=== PATIENT | female | born 1990 | race Caucasian/White ===

== ENCOUNTER 2024-11-11 10:43 | Outpatient (CLI) | payer OTHER, SELFPAY | END 2024-11-11 10:44 | disposition home or self-care (01) | LOC: LKVREF 10:48 | PROVIDERS: Visit Provider Family Medicine | DX: Z13.228 Encounter for screening for other metabolic disorders (principal); Z13.29 Encounter for screening for other suspected endocrine disorder | CPT/HCPCS: 80048; 84443 ==

== ENCOUNTER 2024-12-08 16:26 | Emergency (ER) | payer OTHER, SELFPAY ==
--- OUTSIDE RECORDS SUMMARY | 2024-12-08 16:28 | XMS_ITS | Encounter Summary ---
Author Organization [place] Address [address] [place] [address] Care Team Providers Care Log Check Scaler Name Role Phone Jesus Nielson MD Primary Care Provider + -[phone] Chandrika Ga PA-C Unavailable +- [phone] Encounter Details Date Type Department Care Team (Latest Contact Info) Description 12/08/2024 Travel Social History Tobacco Use Types Packs/Day Years Used Date Smoking Tobacco: Never Smokeless Tobacco: Never Alcohol Use Standard Drinks/Week Comments Not Currently 0 (1 standard drink = 0.6 oz pur e alcohol) PHQ-2 Answer Date Recorded PHQ-2 Score 0 03/29/2022 [place] Depression Scale Answer Date Recorded [place] Depression Score 3 10/18/2019 Last EPDS Self Harm Result Not on file 10/18 Adolescent Education Answer Date Record ed Getting School Help Needed Not on file 08/31 Comments No Sex and Gender Information Value Date Recorded Sex Assigned at Not on file Legal Sex 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 DISPATCHER Gender Identity Not on file Sexual Orientation Not on file Occupation Industry Job Start Date Job End Date Not on file Not on file Not on file Not on file documented as of this encounter Plan of Treatment Not on file documented as of this encounter Visit Diagnoses Not on filedocumented in this encounter Care Teams Log Check Scaler Relationship Specialty Start Date End Date Jesus Nielson MD [address] [place] [address] PCP - General Family Medicine 03/14/22 Chandrika Ga PA-C [address] , [facility] [address] [place] [address] Assigned PCP 04/07/22 documented as of this encounter
--- OUTSIDE RECORDS SUMMARY | 2024-12-08 16:28 | XMS_ITS | Encounter Summary ---
Author Organization [place] Address [address] [place] [address] Care Team Providers Care Concrete Layer Name Role Phone No Ref-Primary, Physician Primary Care Provider Jesus Nielson MD Primary Care Provider [phone] Chandrika Ga PA-C Unavailable +1- [phone] Encounter Details Date Type Department Care Team (Late st Contact Info) Description 10/08/2019 Orders Only [facility] [address] [place] [id number] Noé Mills MD [facility] [address] [place] [address] Pre-operative laboratory examination (Primary Dx) Social History Tobacco Use Types Packs/Day Years Used Date Smoking Tobacco: Never Smokeless Tobacco: Never Alcohol Use Standard Drinks/Week Comments Not Currently 0 (1 standard drink = 0.6 oz pur e alcohol) Comments Yes Sex and Gender Information Value Date Recorded Sex Assigned at Not on file Legal Sex 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 MOBILITY INSTRUCTOR Gender Identity Not on file Sexual Orientation Not on file Occupation Industry Job Start Date Job End Date Not on file Not on file Not on file Not on file documented as of this encounter Plan of Treatment Not on file documented as of this encounter Results * Treponema Abs w Reflex to RPR and Titer (10/15/2019 2:17 PM GUIDE DOG MOBILITY INSTRUCTOR) Treponema Antibodies Nonreactive NR^Nonrea ctive 10/16/2019 10:52 AM GUIDE DOG MOBILITY INSTRUCTOR [facility] Blood specimen (specimen) 10/15/2019 2:17 PM GUIDE DOG MOBILITY INSTRUCTOR 10/15/2019 2:18 PM GUIDE DOG MOBILITY INSTRUCTOR us Renata Rodríguez MD LAB - BLOOD ORDERABLES Fin al Result [facility] [address] [place] [address] * Hemoglobin (10/15/2019 2:17 PM GUIDE DOG MOBILITY INSTRUCTOR) Hemoglobin 13.0 11.7 - 15.7 g/dL 10/15/2019 2:21 PM GUIDE DOG MOBILITY INSTRUCTOR [facility] Blood specimen (specimen) 10/15/2019 2:17 PM GUIDE DOG MOBILITY INSTRUCTOR 10/15/2019 2:18 PM GUIDE DOG MOBILITY INSTRUCTOR us Renata Rodríguez MD LAB - BLOOD ORDERABLES Fin al Result [facility] [address] [place] [address], [facility] [phone] documented in this encounter Visit Diagnoses Diagnosis Pre-operative laboratory examination- Primary Pre-procedural laboratory examination documented in this encounter Care Teams Concrete Layer Relationship Specialty Start Date End Date No Ref-Primary, Physician PCP - General 06/24/17 03/13/22 Jesus Nielson MD [address] [place] [address] PCP - General Family Medicine 03/14/22 Chandrika Ga PA-C [address], [address] [place] [address] Assigned PCP 04/07/22 documented as of this encounter
--- OUTSIDE RECORDS SUMMARY | 2024-12-08 16:28 | XMS_ITS | Encounter Summary ---
Author Organization [place] Address [address] [place] [address] Care Team Providers Care Hearing Aid Mechanic Name Role Phone Jesus Nielson MD Primary Care Provider + -[phone] Chandrika Ga PA-C Unavailable +- [phone] Encounter Details Date Type Department Care Team (Late st Contact Info) Description 03/29/2022 MyC Medical Advice [facility] [address] [place] [address] [address] [place] [address] Chandrika Ga PA-C [address] [place] [address] Social History Tobacco Use Types Packs/Day Years Used Date Smoking Tobacco: Never Smokeless Tobacco: Never Alcohol Use Standard Drinks/Week Comments Not Currently 0 (1 standard drink = 0.6 oz pur e alcohol) PHQ-2 Answer Date Recorded PHQ-2 Score 0 03/29/2022 [place] Depression Scale Answer Date Recorded [place] Depression Score 3 10/18/2019 Last EPDS Self Harm Result Not on file 10/18 Comments No Sex and Gender Information Value Date Recorded Sex Assigned at Not on file 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 No / Unsure 03/29/2022 10:35 AM CDT documented as of this encounter Plan of Treatment Not on file documented as of this encounter Visit Diagnoses Not on filedocumented in this encounter Care Teams Hearing Aid Mechanic Relationship Specialty Start Date End Date Jesus Nielson MD [address] [place] [address] PCP - General Family Medicine 03/14/22 Chandrika Ga PA-C [address], [address] [place] [address] Assigned PCP 04/07/22 documented as of this encounter
--- OUTSIDE RECORDS SUMMARY | 2024-12-08 16:28 | XMS_ITS | Clinical Summary ---
Author Organization [facility] Address [address] [place] [address] Care Team Providers Care Junior Java Developer Name Role Phone No Primary/Referring, Phy Primary Care Provider Unavailable Source Comments You are receiving this document as you are listed as the primary care provider,follow-up provider, or the patient has been referred to you for consultation.This is in compliance with the Medicare and[facility] EHR Incentive Program,which states Providers who transition their patient to another setting of careor provider of care or refers their patient to another provider of care shouldprovide summary care record for each transition of care or referral. [facility] Allergies No known active allergies Medications Medication Sig Dispensed Refills Start Date End Date Status Vit-Fe Sulfate-FA ( VITAMIN OR) Active Etonogestrel-Ethinyl Estradiol (NUVARING) 0.12-0.015 MG/24HR vaginal ringIndications:Encou nter for contraceptive management, unspecified type Insert 1 ring vaginally and leave in place for 3 consecutive weeks, then remove for 1 week. 3 Each 3 09/11/2017 Active Active Problems Problem Noted Date Diagnosed Date Cervical cancer screening 06/27/2017 Overview (06/27/2017): Per visit note 06/18/17, no hx abnormal Pap 2012 NILM ([place]) 2017 NILM 27 y.o. Plan: Co-test 06/2020 Previous section complicating 06/18/2017 Overview (07/10/2017): indications. 2 layer closure Supervision of high-risk 06/18/2017 Uterine fibroid in 06/18/2017 Overview (07/10/2017): 16.7cm subserosal History of cerclage, currently 06/18/20 17 Overview (07/10/2017): Exam/ultrasound indicated cerclage. Consult with MFM about possible prophylactic cerclage Fibroid uterus 07/08/2012 Immunizations Name Administration Dates Next Due Flu Vac (3+ yrs) 08/24/2012 Influenza IIV4 (Quadrivalent ) 0.5mL (90948) 10/19/2019,09/17/2019,08/26/2018, 016 Tdap 04/17/2013,12/24/2012 Family History Medical History Relation Name Comments Diabetes Father Relation Name Status Comments Father Alive Mother Alive Maternal Grandfather Alive Paternal Grandfather Paternal Grandmother Alive Sister 1 Alive Sister 2 Alive Social History Tobacco Use Types Packs/Day Years Used Date Smoking Tobacco: Never Smokeless Tobacco: Never Alcohol Use Standard Drinks/Week Comments No 0 (1 standard drink = 0.6 oz pur e alcohol) Depression Answer Date Recor ded Last EPDS Total Score 12 06/03/2020 Last EPDS Self Harm Result 0-->never 06/03 Sex and Gender Information Value Date Recorded Sex Assigned at Not on file Gender Identity Not on file Sexual Orientation Not on file Last Filed Vital Signs Vital Sign Reading Time Taken Comments Blood Pressure 108/57 01/03/2020 10:09 AM OUTSIDE SALES ACCOUNT MANAGER Pulse 51 01/03/2020 10:09 AM OUTSIDE SALES ACCOUNT MANAGER Temperature - - Respiratory Rate - - Oxygen Saturation - - Inhaled Oxygen Concentration - - Weight 66.2 kg (146 lb) 01/03/2020 10:09 AM OUTSIDE SALES ACCOUNT MANAGER Height 149.9 cm (4' 11) 01/03/2020 10:09 AM OUTSIDE SALES ACCOUNT MANAGER Body Mass Index 29.49 01/03/2020 10:09 AM OUTSIDE SALES ACCOUNT MANAGER Plan of Treatment Health Maintenance Due Date Last Done Comments Hep C Screening (Preventive Services) 1988 HepB (1) 2007 Cervical Cancer Screening 06/18/2020 06/18/2017 Adult Preventive Visit 08/26/2020 08/26/2018 DTaP/Tdap/Td (3 - Tdap) 04/17/2023 04/17/2013, 12/24 COVID-19 Vaccine ( season) 2024 06/14/2021, 05/24/2021 Influenza (#1) 2024 10/19/2019, 11/2018, 08/26/2018, Additional history exists Zoster/Shingles (1 of 2) 2038 HIV Screening (Preventive Services) Completed 06/18/2017 HPV Vaccine Aged Out No longer eligi ble based on patient's age to complete this topic HepA Aged Out No longer eligi ble based on patient's age to complete this topic Hib Aged Out No longer eligi ble based on patient's age to complete this topic IPV (Polio) Aged Out No longer eligi ble based on patient's age to complete this topic MCV4 Aged Out No longer eligi ble based on patient's age to complete this topic Pneumococcal Aged Out No longer eligi ble based on patient's age to complete this topic Procedures Procedure Name Priority Date/Time Associated Diagnosis Comments PAP TEST, ROUTINE Routine 06/18/2017 5:0 8 PM CDT Screening for malignant neoplasm of cervix Previous section complicating HIV 1/2 AG/AB 4TH GEN Routine 06/18/2017 3:41 PM CDT Supervision of high-risk , first trimester from Last 3 Months or Most Recently Relevant to Health Maintenance Results * Pap Test, Routine (06/18/2017 5:08 PM CDT) Cytology, Pap (NOTE) Lining Folder Cytology Report Patient Name: KENJI FOX Taken: 06/18/2017 Received: 06/19/2017 Reported: 06/27/2017 Physician(s): MURIEL MUNOZ Source of Specimen Pap Test, Routine Cervical/Endocervi [place]: Specimen Adequacy Satisfactory for evaluation. Endocervical component absent. Final Cytologic Interpretation/Res ult NEGATIVE FOR INTRAEPITHELIAL LESION OR MALIGNANCY (NILM) *Electronically Signed Out By HUMBERTO Matias (ASCP)* HUMBERTO Matias (ASCP) Pap Smear History Date of Last Menstrual Period: 05/06/2017 Microscopic Description Microscopic examination is performed. [facility] Department of Pathology [address] [place] [address] [facility] 06/18/2017 5:08 PM CDT 06/19/2017 1:58 PM CDT Muriel Munoz MD LAB_[address] [facility] Co de Phone Number [facility] [phone] * HIV 1/2 Ag/Ab 4th Generation (06/18/2017 3:41 PM CDT) HIV 1/2 AG/AB 4thGEN Negative (Non Reactive) NEGNR [facility] Comment:HIV-1 p24 Ag and HIV -1/HIV-2 Ab not detected. 06/18/2017 3:41 PM CDT 06/18/2017 3:44 PM CDT Narrative [facility] - 06/18/2017 7:15 PM CDT Performed at [facility], [address] [place] [address] Muriel Munoz MD LAB_1 Performing Organization [address] [facility] de Phone Number [facility] [phone] from Last 3 Months or Most Recently Relevant to Health Maintenance Care Teams Junior Java Developer Relationship Specialty Start Date End Date No Primary/Referring, Phy PCP - General 06/09/17
--- OUTSIDE RECORDS SUMMARY | 2024-12-08 16:28 | XMS_ITS | Encounter Summary ---
Author Organization [facility] Address [address] [address] Care Team Providers Care Internal Medicine Specialist Name Role Phone No Primary/Referring, Phy Primary Care Provider Unavailable Encounter Details Date Type Department Care Team (Late st Contact Info) Description 08/05/2017 Correspondence [facility] OB-SERVICE CREW SUPERVISOR [place] [address] [place], [place] [address] Alondra Mcduffie MD [address] [place] [address] CERTIFICATION OF HEALTH CARE PROVIDER Social History Tobacco Use Types Packs/Day Years Used Date Smoking Tobacco: Never Smokeless Tobacco: Never Alcohol Use Standard Drinks/Week Comments No 0 (1 standard drink = 0.6 oz pur e alcohol) Comments Yes Sex and Gender Information Value Date Recorded Sex Assigned at Not on file Gender Identity Not on file Sexual Orientation Not on file documented as of this encounter Plan of Treatment Not on file documented as of this encounter Visit Diagnoses Not on filedocumented in this encounter Additional Health Concerns Infection Onset Date Last Indicated Resolved Time R/O COVID19 06/09/2020 06/09/2020 06/16/2020 3:17 AM CDT documented as of this encounter Care Teams Internal Medicine Specialist Relationship Specialty Start Date End Date No Primary/Referring, Phy PCP - General 06/09/17 documented as of this encounter
--- OUTSIDE RECORDS SUMMARY | 2024-12-08 16:28 | XMS_ITS | Encounter Summary ---
[facility] Address [address] [address] Care Team Providers Care Moving Worker Name Role Phone No Primary/Referring, Phy Primary Care Provider Unavailable Encounter Details Date Type Department Care Team (Late st Contact Info) Description 06/25/2012 Correspondence External to [facility], Provider TEST FORM Social History Tobacco Use Types Packs/Day Years Used Date Smoking Tobacco: Never Assessed Sex and Gender Information Value Date Recorded Sex Assigned at Not on file Gender Identity Not on file Sexual Orientation Not on file documented as of this encounter Progress Notes * [facility], Provider - 06/25/2012 12:00 AM CDT documented in this encounter Plan of Treatment Not on file documented as of this encounter Visit Diagnoses Not on filedocumented in this encounter Additional Health Concerns Infection Onset Date Last Indicated Resolved Time R/O COVID19 06/09/2020 06/09/2020 06/16/2020 3:17 AM CDT documented as of this encounter Care Teams Moving Worker Relationship Specialty Start Date End Date No Primary/Referring, Phy PCP - General 06/09/17 documented as of this encounter
--- OUTSIDE RECORDS SUMMARY | 2024-12-08 16:28 | XMS_ITS | Encounter Summary ---
Author Organization [place] Address [address] [place] [address] Care Team Providers Care Senior Bioinformatics Specialist Name Role Phone Jesus Nielson MD Primary Care Provider [phone] [phone] Chandrika Ga PA-C Unavailable +1- [phone] Encounter Details Date Type Department Care Team (Late st Contact Info) Description 12/08/2024 3:49 PM PLASMA PROCESSING TECHNICIAN - 12/08/2024 4:12 PM PLASMA PROCESSING TECHNICIAN Emergency [facility] Emergency Dept [address] [place] [address] Discharge Disposition: Home or Self Care Social History Tobacco Use Types Packs/Day Years Used Date Smoking Tobacco: Never Smokeless Tobacco: Never Alcohol Use Standard Drinks/Week Comments Not Currently 0 (1 standard drink = 0.6 oz pur e alcohol) PHQ-2 Answer Date Recorded PHQ-2 Score 0 03/29/2022 [place] Depression Scale Answer Date Recorded [place] Depression Score 3 10/18/2019 Last EPDS Self Harm Result Not on file 10/18 Adolescent Education Answer Date Record ed Getting School Help Needed Not on file 08/31 Comments No Sex and Gender Information Value Date Recorded Sex Assigned at Not on file Legal Sex Female 4:31 AM PLASMA PROCESSING TECHNICIAN Gender Identity Not on file Sexual Orientation Not on file Occupation Industry Job Start Date Job End Date Not on file Not on file Not on file Not on file documented as of this encounter Medications at Time of Discharge fish oil-omega-3 fatty acids 1000 MG capsule Take 2 g by mouth daily Multiple Vitamins-Minerals (WOMENS MULTIVITAMIN) TABS 03/29/2022 Pomegranate, Punica granatum, 150 MG CAPS documented as of this encounter ED Notes * Jigna Vee RN - 12/08/2024 4:12 PM CST Patient name called for triage at 1558, 1604, and 1612 with no answer from lobby. [place] PROCESSING TECHNICIAN documented in this encounter Plan of Treatment Not on file documented as of this encounter Visit Diagnoses Not on filedocumented in this encounter Care Teams Senior Bioinformatics Specialist Relationship Specialty Start Date End Date Jesus Nielson MD [address] [place] [address] PCP - General Family Medicine 03/14/22 Chandrika Ga PA-C [address], [facility] [address] [place] [address] Assigned PCP 04/07/22 documented as of this encounter
--- OUTSIDE RECORDS SUMMARY | 2024-12-08 16:28 | XMS_ITS | Clinical Summary ---
Author Organization [facility] Address [address] [place] [address] Care Team Providers Care Alliances Consultant Name Role Phone Jesus Nielson MD Primary Care Provider [phone] [phone] Chandrika Ga PA-C Unavailable +1- [phone] Allergies Active Allergy Reactions Criticality Noted Date Comments No Known Drug Allergy 12/16/2003 Medications Pomegranate, Punica granatum, 150 MG CAPS Active fish oil-omega-3 fatty acids 1000 MG capsule Take 2 g by mouth daily Active Multiple Vitamins-Mineral s (WOMENS MULTIVITAMIN) TABS 03/29/2022 Active Active Problems Problem Noted Date Diagnosed Date ACP (advance care planning) 03/29/2022 Uterine leiomyoma, unspecified location 03/29/20 Delivery of by section 2018 Status post delivery 02/17/2013 Cervical incompetence 01/25/2013 Hx of cervical cerclage, currently 01/15 uterine contractions 01/10/2013 High-risk 12/17/2012 Overview (08/18/2015): Problem list name updated by automated process. Provider to review Cervical cerclage suture present 11/03/2012 Cervical insufficiency in , antepartum 10/20/2012 Supervision of normal first 09/09/2012 CARDIOVASCULAR SCREENING; LDL GOAL LESS THAN 160 09/16/2010 Anxiety Resolved Problems Problem Noted Date Diagnosed Date Resolved Date Health Snf 03/29/2022 05/03/2024 Encounter for triage in patient 07/14/2019 03/29/2022 Intermittent asthma 03/29/20 22 Encounters Date Type Department Care Team Description 12/08/2024 3:49 PM PARI MUTUAL TICKET CHECKER - 12/08/2024 4:12 PM PARI MUTUAL TICKET CHECKER Emergency [facility] Emergency Dept [address] [place] [address] Discharge Disposition: Home or Self Care 12/08/2024 Travel from Last 3 Months Immunizations Name Administration Dates Next Due COVID-19 MONOVALENT 12+ (Pfizer) 06/14/2021,070 06/2021 Influenza (IIV3) PF 08/24/2012 Influenza Vaccine >6 months,quad, PF 10/19/2019 TDAP Vaccine (Adacel) 10/18/2019(),12/24/2012 Family History Medical History Relation Comments Impaired Fasting Glucose Father Diabetes Paternal Grandfather Hypertension Paternal Grandfather Diabetes Paternal Grandmother Hypertension Paternal Grandmother Anxiety Disorder Sister 1 Other - See Comments Sister 1 aneurnysm? Anxiety Disorder Sister 2 Relation Status Comments Father Alive Mother Alive Paternal Grandfather Alive Paternal Grandmother Alive Sister 1 Alive Sister 2 Alive Social History Tobacco Use Types Packs/Day Years Used Date Smoking Tobacco: Never Smokeless Tobacco: Never Alcohol Use Standard Drinks/Week Comments Not Currently 0 (1 standard drink = 0.6 oz pur e alcohol) PHQ-2 Answer Date Recorded PHQ-2 Score 0 03/29/2022 [place] Depression Scale Answer Date Recorded [place] Depression Score 3 10/18/2019 Last EPDS Self Harm Result Not on file 10/18 Adolescent Education Answer Date Record ed Getting School Help Needed Not on file 08/31 Comments No Sex and Gender Information Value Date Recorded Sex Assigned at Not on file Legal Sex Female 4:31 AM PARI MUTUAL TICKET CHECKER Gender Identity Not on file Sexual Orientation Not on file Occupation Industry Job Start Date Job End Date Not on file Not on file Not on file Not on file Last Filed Vital Signs Vital Sign Reading Time Taken Comments Blood Pressure 124/72 03/29/2022 11:17 AM CDT Pulse 56 03/29/2022 11:17 AM CDT Temperature 36.7 C (98.1 F) 03/29/2022 11:17 AM CDT Respiratory Rate 18 10/19/2019 8:30 AM PARI MUTUAL TICKET CHECKER Oxygen Saturation 99% 03/29/2022 11:17 AM CDT Inhaled Oxygen Concentration - - Weight 61.2 kg (135 lb) 03/29/2022 11:17 AM CDT Height 149.9 cm (4' 11) 10/16/2019 8:16 AM PARI MUTUAL TICKET CHECKER Body Mass Index 27.27 10/16/2019 8:16 AM PARI MUTUAL TICKET CHECKER Plan of Treatment Health Maintenance Due Date Last Done Comments ANNUAL REVIEW OF HM ORDERS 1988 HEPATITIS C SCREENING 2006 HEPATITIS B IMMUNIZATION (1 of 3 - 19+ 3-dose series) 2007 PAP 06/18/2020 06/18/2017, 03/17, 01/16/2012 COVID-19 Vaccine ( season) 2024 06/14/2021, 05/24/2021 INFLUENZA VACCINE (#1) 2024 10/19/2019, 2011 PHQ-2 (once per calendar year) 2024 03/29/2022 YEARLY PREVENTIVE VISIT 03/03/2025 03/03/20 24, 03/29/2022, 03/29/2022 GLUCOSE 03/29/2025 03/29/2022, 12/2017, 05/10/2013, Additional history exists ADVANCE CARE PLANNING 03/29/2027 03/29/2022, 022 DTAP/TDAP/TD IMMUNIZATION (3 - Td or Tdap) 03/03/2034 03/03/2024, 12/24/2012 ZOSTER IMMUNIZATION (1 of 2) 2038 RSV VACCINE (1 - 1-dose 75+ series) 2063 HIV SCREENING Completed 03/29/2019, 12/2016, 09/04/2012 HPV IMMUNIZATION Aged Out No longer e ligible based on patient's age to complete this topic MENINGITIS IMMUNIZATION Aged Out No l onger eligible based on patient's age to complete this topic Pneumococcal Vaccine: Pediatrics (0 to 5 Years) and At-Risk Patients (6 to 49 Years) Aged Out No longer eligible based on patient's age to complete this topic RSV MONOCLONAL ANTIBODY Aged Out No l onger eligible based on patient's age to complete this topic Procedures Procedure Name Priority Date/Time Associated Diagnosis Comments COMPREHENSIVE METABOLIC PANEL (BFP) Routine 03/29/2022 1:35 PM CDT Screening for metabolic disorder HIV ANTIGEN ANTIBODY COMBO Routine 03/29/2019 PAP IMAGED THIN LAYER SCREEN Routine 04/01/2013 12:00 AM CDT Screening for malignant neoplasm of the cervix Routine follow-up from Last 3 Months or Most Recently Relevant to Health Maintenance Results * Comprehensive Metobolic Panel (BFP) (03/29/2022 1:35 PM CDT) Creatinine 0.69 0.60 - 1.30 mg/dL BFP INTERNAL Glucose 92 60 - 99 mg/dL [facility] INTERNAL Sodium 140.2 135 - 146 mmol/L B[facility] INTERNAL Potassium 4.32 3.5 - 5.3 mmol/L B[facility] INTERNAL Chloride 105.1 98 - 110 mmol/L B[facility] INTERNAL Protein Total 7.3 6.1 - 8.1 g/dL B[facility] INTERNAL Albumin 4.7 3.6 - 5.1 g/dL [facility] INTERNAL Alkaline Phosphatase 93 33 - 130 U/L [facility] INTERNAL ALT 14 0 - 32 U/L [facility] AST 13 0 - 35 U/L [facility]NAL Bilirubin Total 0.5 0.2 - 1.2 mg/dL [facility] INTERNAL Urea Nitrogen 11 7 - 25 mg/dL B[facility] INTERNAL Calcium 9.1 8.6 - 10.3 mg/dL [facility] INTERNAL BUN/Creatinine Ratio 15.9 6 - 22 [facility] INTERNAL Globulin Calculated 2.6 1.9 - 3.7 [facility]NAL A/G Ratio 1.8 1 - 2.5 [facility] INTERNAL Blood 03/29/2022 1:35 PM CDT us Chandrika Ga PA-C LAB - NON-BEAKER BLO OD LABS Final Result [facility] INTERNAL [address] [place] [address] [place] [id number] * HIV Antigen Antibody Combo (03/29/2019) HIV Antigen Antibody Combo NONREACTIVE Blood specimen (specimen) us Patient Reported LAB - BLOOD ORDERABLES Final Re sult * PAP imaged thin layer, screen (04/01/2013 12:00 AM CDT) PAP NIL COPATH Copath Report Patient Name: KENJI CASTANO MR#: [id number] Specimen #: [id number] Collected: 04/01/2013 Received: 04/02/2013 Reported: 04/05/2013 10:17 Ordering Phy(s): JESUS LUGO SPECIMEN/STAIN PROCESS: Pap imaged thin layer prep screening (Surepath, FocalPoint with guided screening) Pap-Cyto x 1, Reflex HPV x 1 SOURCE: Cervical, endocervical Pap imaged thin layer prep screening (Surepath, FocalPoint with guided screening) SPECIMEN ADEQUACY: Satisfactory for evaluation. -Transformation zone component absent. CYTOLOGIC INTERPRETATION: Negative for Intraepithelial Lesion or Malignancy Electronically signed out by: HUMBERTO Fall (ASCP) Processed and screened at [facility] CLINICAL HISTORY: Breast feeding Post-, Previous normal pap: one year ago- done elsewhere, Papanicolaou Test Limitations: Cervical cytology is a screening test with limited sensitivity; regular screening is critical for cancer prevention; Pap tests are primarily effective for the diagnosis/preventi on of squamous cell carcinoma, not adenocarcinomas or other cancers. TESTING LAB LOCATION: [address] [address] COLLECTION SITE: Client: [facility] Location: OXOB (S) COPATH Cytologic material (specimen) 04/01/2013 04/02/2013 9:27 AM CDT Jesus Lugo MD LAB - OPTIME CLINICAL SPECI MEN Final Result COPATH from Last 3 Months or Most Recently Relevant to Health Maintenance Insurance [facility] INDIVIDUAL FAMILY PLANS [facility] OUT OF STATE [employer] INDIVIDUAL FAMILY PLANS [employer] Care Teams Alliances Consultant Relationship Specialty Start Date End Date Jesus Nielson MD [address] [place] [address] PCP - General Family Medicine 03/14/22 Chandrika Ga PA-C [address] [facility] [address] [place] [address] Assigned PCP 04/07/22
--- OUTSIDE RECORDS SUMMARY | 2024-12-08 16:28 | XMS_ITS | Encounter Summary ---
Author Organization [facility] Address [address], [place] [address] Care Team Providers Care Firepot Operator And Tender Name Role Phone No Primary/Referring, Phy Primary Care Provider Unavailable Encounter Details Date Type Department Care Team (Late st Contact Info) Description 08/05/2017 Correspondence [facility] Obstetrics and Gynecology [address] [place], [place] [id number] Alondra Mcduffie MD [address] [place] [address] FMLA Social History Tobacco Use Types Packs/Day Years [...] documented as of this encounter Care Teams Firepot Operator And Tender Relationship Specialty Start Date End Date No Primary/Referring, Florenciay PCP - General 06/09/17 documented as of this encounter
--- OUTSIDE RECORDS SUMMARY | 2024-12-08 16:28 | XMS_ITS | Encounter Summary ---
Author Organization [facility] Address [address] [place] [address] Care Team Providers Care Ballet Soloist Name Role Phone No Ref-Primary, Physician Primary Care Provider [facility] Primary Care P rovider Joey Mora MD Primary Care Provider No Ref-Primary, Physician Primary Care Provider Jesus Nielson MD Primary Care Provider [phone] [phone] Chandrika Ga PA-C Unavailable [phone]- [phone] Reason for Visit * Reason Onset Date Comments Health Maintenance 06/22/2012 Encounter Details Date Type Department Care Team (Late st Contact Info) Description 06/22/[address] [place] [address] No Ref-Primary, Physician Health Maintenance Social History Tobacco Use Types Packs/Day Years Used Date Smoking Tobacco: Never Alcohol Use Standard Drinks/Week Comments Yes 0 (1 standard drink = 0.6 oz pur e alcohol) Comments Yes Sex and Gender Information Value Date Recorded Sex Assigned at Not on file Legal Sex Female 4:31 AM NUCLEAR TECHNICIAN Gender Identity Not on file Sexual Orientation Not on file documented as of this encounter Miscellaneous Notes * Telephone Encounter - Delmy Skinner - 06/22/2012 5:08 PM CDT Patient was reached regarding her preventative health screen for her cervical screen. Stated she had it done this last January [facility] at [facility] [place] was normal. Thank you documented in this encounter Plan of Treatment Not on file documented as of this encounter Visit Diagnoses Not on filedocumented in this encounter Care Teams Ballet Soloist Relationship Specialty Start Date End Date No Ref-Primary, Physician PCP - General 06/11/12 08/06/[address] [address] PCP - General 08/07/12 01/11/13 Joey Mora MD [address] [place] [address] PCP - General Internal Medicine 01/12/13 06/23/17 No Ref-Primary, Physician PCP - General 06/24/17 03/13/22 Jesus Nielson MD [address] [address] PCP - General Family Medicine 03/14/22 Chandrika Ga PA-C [address] , [address] [address] Assigned PCP 04/07/22 documented as of this encounter
--- OUTSIDE RECORDS SUMMARY | 2024-12-08 16:28 | XMS_ITS | Referral Summary ---
Author Organization [facility] Address [address] [place] [address] Care Team Providers Care Sales Representative Public Utilities Name Role Phone Jesus Nielson MD Primary Care Provider [phone] [phone] Chandrika Ga PA-C Unavailable [phone]- [phone] Encounters Date Type Department Care Team Description 12/08/2024 Travel 12/08/2024 3:49 PM CLINICAL SALES CONSULTANT - 12/08/2024 4:12 PM [facility] Emergency [facility] Emergency Dept [address] [place] [address] Discharge Disposition: Home or Self Care from Last 3 Months Allergies Active Allergy Reactions Criticality Noted Date [...] Noted Date Diagnosed Date Resolved Date Health Fdc 03/29/2022 05/03/2024 Encounter for triage in patient 07/14/2019 03/29/2022 Intermittent asthma 03/29/20 Immunizations Name Administration Dates Next Due COVID-19 MONOVALENT 12+ (Pfizer) 06/14/2021,07/0 06/2021 Influenza (IIV3) PF 08/24/2012 Influenza Vaccine >6 months,quad, PF 10/19/2019 TDAP Vaccine (Adacel) 10/18/2019(),12/24/2012 Social History Tobacco Use Types Packs/Day Years Used Date Smoking Tobacco: Never Smokeless Tobacco: Never Alcohol Use Standard Drinks/Week Comments Not Currently 0 (1 standard drink = 0.6 oz pur e alcohol) PHQ-2 Answer Date Recorded PHQ-2 Score 0 03/29/2022 [place] Depression Scale Answer Date Recorded [place] Depression Score 3 10/18/2019 Last EPDS Self Harm Result Not on file 10/18 Adolescent Education Answer Date Record ed Getting School Help Needed Not on file 08/31 Comments No Sex and Gender Information Value Date Recorded Sex Assigned at Not on file Legal Sex Female 4:31 AM CLINICAL SALES CONSULTANT Gender Identity Not on file Sexual Orientation [...] CDT Respiratory Rate 18 10/19/2019 8:30 AM CLINICAL SALES CONSULTANT Oxygen Saturation 99% 03/29/2022 11:17 AM CDT Inhaled Oxygen Concentration - - Weight 61.2 kg (135 lb) 03/29/2022 11:17 AM CDT Height 149.9 cm (4' 11) 10/16/2019 8:16 AM CLINICAL SALES CONSULTANT Body Mass Index 27.27 10/16/2019 8:16 AM CLINICAL SALES CONSULTANT Plan of Treatment Not on file Procedures Procedure Name Priority Date/Time Associated Diagnosis [...] [facility] Blood 03/29/2022 1:35 PM CDT Chandrika Ga PA-C LAB - NON-BEAKER BLO OD LABS Final Result [facility] INTERNAL [address] [place] [address] [place] [phone], [facility] * HIV Antigen Antibody Combo (03/29/2019) HIV Antigen Antibody Combo NONREACTIVE Blood specimen (specimen) us Patient Reported LAB - BLOOD ORDERABLES Final Re sult * PAP imaged thin layer, screen (04/01/2013 12:00 AM CDT) PAP NIL COPATH Copath Report Patient Name: KENJI CASTANO MR#: [id number] Specimen #: [id number] Collected: 04/01/2013 Received: 04/02/2013 Reported: 04/05/2013 10:17 [...] HUMBERTO Fall (ASCP) Processed and screened at [facility] CLINICAL HISTORY: Breast feeding Post-, Previous normal pap: one year ago- done elsewhere, Papanicolaou Test Limitations: Cervical cytology is a screening test with limited sensitivity; regular screening is critical for cancer prevention; Pap tests are primarily effective for the diagnosis/preventi on of squamous cell carcinoma, not adenocarcinomas or other cancers. TESTING LAB LOCATION: [address] [address] COLLECTION SITE: Client: [facility] Location: OXOB (S) COPATH Cytologic material (specimen) 04/01/2013 04/02/2013 9:27 AM CDT Jesus Lugo MD LAB - OPTIME CLINICAL SPECI MEN Final Result COPATH from Last 3 Months or Most Recently Relevant to Health Maintenance Insurance [facility] INDIVIDUAL FAMILY PLANS [facility] OUT OF STATE [facility] INDIVIDUAL FAMILY PLANS [employer] Care Teams Sales Representative Public Utilities Relationship Specialty Start Date End Date Jesus Nielson MD [address] [place] [address] PCP - General Family Medicine 03/14/22 Chandrika Ga PA-C [address] [address] Assigned PCP 04/07/22
--- OUTSIDE RECORDS SUMMARY | 2024-12-08 16:28 | XMS_ITS | Encounter Summary ---
Author Organization [facility] Address [address] [place] [address] Care Team Providers Care Hospital Aides And Assistants Teacher Name Role Phone No Ref-Primary, Physician Primary Care Provider Jesus Nielson MD Primary Care Provider [phone] [phone] Chandrika Ga PA-C Unavailable [phone]- [phone] Encounter Details Date Type Department Care Team (Late st Contact Info) Description 10/08/[address] [facility] Laboratory [address] [place] [address] Noé Mills MD [address] [address] Pre-operative laboratory examination (Primary Dx) Social History Tobacco Use Types Packs/Day Years Used Date Smoking Tobacco: Never Smokeless Tobacco: Never Alcohol Use Standard Drinks/Week Comments Not Currently 0 (1 standard drink = 0.6 oz pur e alcohol) Comments Yes Sex and Gender Information Value Date Recorded Sex Assigned at Not on file Legal Sex Female 4:31 AM HIDE SORTER Gender Identity Not on file Sexual Orientation Not on file Occupation Industry Job Start Date Job End Date Not on file Not on file Not on file Not on file documented as of this encounter Plan of Treatment Not on file documented as of this encounter Results * ABO/Rh type and screen (10/15/2019 2:17 PM HIDE SORTER) ABO O 10/15/2019 3:[address] [facility] RH(D) Pos [facility] Antibody Screen Neg 10/15/2019 3:[address] [facility] Test Valid Only At [facility] 10/15/2019 2:[address] [facility] Specimen Expires 10/18/2019 10/15/2019 2:[address] [facility] Blood specimen (specimen) 10/15/2019 2:17 PM HIDE SORTER 10/15/2019 2:18 PM HIDE SORTER us Renata Rodríguez MD LAB - BLOOD BANK TEST ORDE R Final Result [facility] [address] [place] [address], [facility] [phone] documented in this encounter Visit Diagnoses Diagnosis Pre-operative laboratory examination- Primary Pre-procedural laboratory examination documented in this encounter Care Teams Hospital Aides And Assistants Teacher Relationship Specialty Start Date End Date No Ref-Primary, Physician PCP - General 06/24/17 03/13/22 Jesus Nielson MD [address] [place] [address] PCP - General Family Medicine 03/14/22 Chandrika Ga PA-C [address] [place] [address] Assigned PCP 04/07/22 documented as of this encounter
--- OUTSIDE RECORDS SUMMARY | 2024-12-08 16:28 | XMS_ITS | Clinical Summary ---
Author Organization [facility] Address [place], [place] [address] Care Team Providers Care Retail Performance Specialist Name Role Phone Dana Lezama MD Primary Care Provider Allergies No known active allergies Medications No known medications Active Problems Problem Noted Date Diagnosed Date Pap smear for cervical cancer screening 03/17/20 24 Overview (03/17/2024): 02/2024 NIL/HPV negative. Plan: Pap/HPV due 02/2029 Fibroids 03/03/2015 Resolved Problems Problem Noted Date Diagnosed Date Resolved Date Breech presentation 08/28/2017 03/03/20 24 hemorrhage 08/28/20172023 , delivered 08/28/2017 03/03/2024 Previous section 08/28/2017 premature rupture of membranes (PPROM) with unknown onset of labor 08/25/201702/15 Uterine fibroids affecting p regnancy in first trimester 08/06/2017 03/03/2024 Overview (04/19/2019): A large fibroid is located in the left uterus, including the EUNICE: 16.5 cm[s] x 14.7 cm[s] x 10.7 cm[s] (L/W/D) Also lower left side myoma History of cervical cerclage , currently in first trimester 08/06/2017 03/03/2024 [facility] consult 07/31/2017 024 Overview (04/19/2019): MPP CONSULTATION REASON FOR CONSULT: Consult for risks/Managemnt ( Had a consult 08/06/[address] Hensley ) TODAY'S APPOINTMENT: MD Consultation PRIMARY DIAGNOSES: 27 y.o. Estimated Date of Delivery: 10/23/192011 H/O Cerclage 20-22 weeks for premature dilatation 2012 Cerclage removed at 37 weeks H/O C/B (post dates) Breech ,laboring and meconium History of 17wk loss for PPROM Fibroids Hx of myomectomy 12/08/17 at [facility]- Myometrial cavity not entered LAST GROWTH: 03/01/19 Dating U/S = 6w2d REFERRING PHYSICIAN/PHONE/LAST UPDATE: Aidan Álvarez DNP at [facility] [phone] Primary MD prefers recommendations re:scheduling of further ultrasounds/testing. SPECIALISTS/PHONE: NIKITA: Record viewable in Care Everywhere : 10/20/12 - Cerclage placed by MFM at the , Dr Elmer Hart, Delivered 02/15/13 at 40w 4d CARE COORDINATION: GENETICS: PROCEDURES: PERTINENT LABS: Blood type O positive PERTINENT MEDS: PLAN OF CARE: Dysmenorrhea 03/03/2015 08/06/2017 Mild intermittent asthma 03/03/201510/2016 History of delivery, currently in second trimester 03/03/2024 Zika virus exposure affecting 03/03/2024 with history of uterine myomectomy 03/03/2024 Immunizations Name Administration Dates Next Due Influenza, IIV4 10/19/2019,09/17/2019,08/26/2018 ,08/28/2016 Tdap 03/03/2024,04/17/2013 Family History Medical History Relation Name Comments Allergies Father Stroke Maternal Grandfather Unknown Maternal Grandmother Osteoarthritis Mother Diabetes Paternal Grandmother Type 1 Aneurysm Sister 1 Radha A malformation something Good Health Sister 2 Gissell No Known Problems Son 1 Jefe No Known Problems Son 2 Heavenly Relation Name Status Comments Father Alive Maternal Grandfather Maternal Grandmother Mother Alive Paternal Grandfather Paternal Grandmother Sister 1 Radha Alive Sister 2 Gissell Alive Son 1 Jefe Alive Son 2 Heavenly Alive Social History Tobacco Use Types Packs/Day Years Used Date Smoking Tobacco: Never Smokeless Tobacco: Never Tobacco Cessation:Counseling Given: Yes Alcohol Use Standard Drinks/Week Comments No 0 (1 standard drink = 0.6 oz pur e alcohol) [facility] Utilities Answer Date Recorded Do you have trouble paying f or utilities (for example, heat, electricity, water, phone)? Yes 11/17/2023 PHQ-2 Answer Date Recorded PHQ-2 TOTAL SCORE 0 03/03/2024 Social Connections Answer Date Recorded Do you often feel lonely or isolated from those around you? 0 11/17/2023 Financial Resource Strain Answer Date R ecorded Difficulty of Paying Living Expenses 3 12/02/2023 Difficulty of Paying Living Expenses Not on file 12/02/2023 Food Insecurity Answer Date Recorded Do you worry your food will run out before you are able to buy more? 1 11/17/2023 Transportation Needs Answer Date Record ed Does lack of transportation keep you from medica l appointments? 1 11/17/2023 Does lack of transportation keep you from work, meetings or getting things that you need? 1 11/17/2023 Housing Stability Answer Date Recorded What is your housing situation today? 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 Not on file Not on file Not on file Obstetrics History Para Term AB IAB SAB Ectopic Multiple Livin g Live Births 3 2 2 0 1 0 0 0 0 2 2 Date Outcome GA Total Labor Labor/2nd/3rd Weight Sex Type Anes PTL Ludivina A1 A5 Name Clin 013 Term 40w 2d 2.66 kg (5 lb 14 oz) M C-Sec tion Y Livin g Jefe Complications:Meconium in am niotic fluid 017 AB 15w 4d Demis e 0 0 019 Term 39w 0d M C-Sec tion Livin g Heavenly Last Filed Vital Signs Vital Sign Reading Time Taken Comments Blood Pressure 100/62 03/03/2024 10:52 AM CDT Pulse 60 03/03/2024 10:52 AM CDT Temperature 36.2 C (97.2 F) 11/17/2023 10:17 AM INSTRUCTIONAL MATERIAL DIRECTOR Respiratory Rate 20 11/17/2023 10:17 AM INSTRUCTIONAL MATERIAL DIRECTOR Oxygen Saturation 98% 03/03/2024 10:52 AM CDT Inhaled Oxygen Concentration - - Weight 62.4 kg (137 lb 9.6 oz) 03/03/2024 10:52 AM CDT Height 148.5 cm (4' 10.47) 03/03/2024 10:52 AM CDT Body Mass Index 28.3 03/03/2024 10:52 AM CDT Plan of Treatment Upcoming Encounters Date Type Department Care Team (Late st Contact Info) Description 05/17/2025 9:00 AM CDT Telemedicine [facility] [address] [place] [address] Julissa Lyons, ALDO [address] [facility] [address] [place], [place] [id number] Health Maintenance Due Date Last Done Comments COVID-19 vaccine series ( season) 2024 06/14/2021, 05/24/2021 Influenza for age 9-49 07/18/2024 9, 09/17/2019, 08/26/2018, Additional history exists BMI (ht and wt on same day) for age 18+ 03/03/2025 03/03/2024, 08/24/2017, 08/06/2017, Additional history exists Depression screening for age 12+ 03/05/2025 03/05/2024, 03/03/2024, 08/28/2016 Pap test for age 21-65 03/03/2029 , 03/03/2024, 03/03/2015 Tetanus booster 03/03/2034 03/03/2024, 04/17/2013 HIV for age 15-65 Completed 03/03/2024 Hepatitis C screening for age 18-79 Completed 03/03/2024 Tdap Completed 03/03/2024, 04/17/2013 Pneumococcal series for age 6-49 Aged Out No longer eligible based on patient's age to complete this topic Procedures Procedure Name Priority Date/Time Associated Diagnosis Comments ANTI HIV 1/2 Routine 03/03/2024 11:34 AM CDT Encounter for screening for HIV ANTI HCV Routine 03/03/2024 11:34 AM CDT Need for hepatitis C screening test HPV HIGH RISK Routine 03/03/2024 11:15 AM CDT Pap smear for cervical cancer screening from Last 3 Months or Most Recently Relevant to Health Maintenance Results * ANTI HCV (03/03/2024 11:34 AM CDT) Pathologist [facility] HEPATITIS C ANTIBODY Non-Reacti ve Non-React feliciano 03/03/2024 5:21 PM CDT [facility] Comment:Please note, per www .CDC.gov: If a patient is known to be at high risk of HCV infection, or is symptomatic, and the physician's suspicion of HCV infection is high, HCV RNA testing is often employed and is of diagnostic value, even after an initial negative anti-HCV test result. Blood BLOOD SPECIMEN / Unknown Venipuncture / Unknown 03/03/2024 11:34 AM CDT 03/03/2024 11:34 AM CDT Dana Lezama MD SEND OUTS Final R [facility] [address] [place] [address], * ANTI HIV 1/2 (03/03/2024 11:34 AM CDT) Pathologist [facility] HIV-1/HIV-2 SCREEN Non-Reacti ve Non-Reacti ve 03/03/2024 5:01 PM CDT [facility] Comment:HIV-1 p24 and HIV-1/ HIV-2 Ab Not Detected. Blood BLOOD SPECIMEN / Unknown Venipuncture / Unknown 03/03/2024 11:34 AM CDT 03/03/2024 11:34 AM CDT Dana Lezama MD SEND OUTS Final R esult [facility] [address] [place] [address], * HPV HIGH RISK (03/03/2024 11:15 AM CDT) TYPE 16 Negative Negative 03/05/2024 2:19 PM CDT [facility] TYPE 18 Negative Negative 03/05/2024 2:19 PM CDT [facility] OTHER HIGH RISK TYPES Negative Negative 03/05/2024 2:19 PM CDT [facility] Other (Cervical) Non-Blood / Unknown 03/03/2024 11:15 AM CDT 03/04/2024 12:17 PM CDT Narrative [facility] - 03/05/2024 2:19 PM CDT HPV types 16, 18, 31, 33, 35, 39, 45, 51, 52, 56, 58, 59, 66 and 68 DNA were undetectable or below the pre-set threshold. Methodology: Poptip Maddi 4800 HPV Test us Dana Lezama MD MICROBIOLOGY Final R esult Performing Organization Address [facility] de Phone Number [facility] [address] [place] [address], from Last 3 Months or Most Recently Relevant to Health Maintenance Insurance [place] [id number] * Guarantor: KENJI FOX Account Type Relation to Patient Date of Phone Billing Address Personal/Family 1990 [id number] [place] [id number] Advance Directives * Full Code (Latest Code Status on File) Date Activated Date Inactivated Comments 08/28/2017 1:30 PM 08/29/2017 4:38 PM * Full Code Date Activated Date Inactivated Comments 08/28/2017 4:10 AM 08/28/2017 1:30 PM * Full Code Date Activated Date Inactivated Comments 08/25/2017 2:20 PM 08/26/2017 2:05 PM Care Teams Retail Performance Specialist Relationship Specialty [place] [id number] [address] [place] [address] PCP - General Family Practice 03/03/24
--- OUTSIDE RECORDS SUMMARY | 2024-12-08 16:28 | XMS_ITS | Encounter Summary ---
Author Organization [facility] Address [address] [place] [address] Care Team Providers Care Putty And Patch Worker Name Role Phone Jesus Nielson MD Primary Care Provider + -[phone] Chandrika Ga PA-C Unavailable +- [phone] Encounter Details Date Type Department Care Team (Late st Contact Info) Description 04/11/2022 MyC Medical Advice [facility] [address] [place] [address] [address] [place] [address] Chandrika Ga PA-C [address] [place] [address] Social History Tobacco Use Types Packs/Day Years Used Date Smoking Tobacco: Never Smokeless Tobacco: Never Alcohol Use Standard Drinks/Week Comments Not Currently 0 (1 standard drink = 0.6 oz pur e alcohol) PHQ-2 Answer Date Recorded PHQ-2 Score 0 03/29/2022 Amorita Depression Scale Answer Date Recorded Amorita Depression Score 3 10/18/2019 Last EPDS Self Harm Result Not on file 10/18 Comments No Sex and Gender Information Value Date Recorded Sex Assigned at Not on file Legal Sex Female 4:31 AM NETWORKING TECHNICIAN Gender Identity Not on file Sexual [...] on filedocumented in this encounter Care Teams Putty And Patch Worker Relationship Specialty Start Date End Date Jesus Nielson MD [address] [place] [address] PCP - General Family Medicine 03/14/22 Chandrika Ga PA-C [address], [address] [place] [address] Assigned PCP 04/07/22 documented as of this encounter
[2024-12-08 16:34] VITALS: BP 129/78; PULSE 65; RESP 18; TEMP 37.2; O2SAT 97; BMI 27.1
--- NOTE | 2024-12-08 17:07 | CRLHL7_ITS ---
For Patients: As a result of the Century Cures Act, medical imaging exams and procedure reports are released immediately into your electronic medical record. You may view this report before your referring provider. If you have questions, please contact your health care provider. INDICATION: Recent abdominoplasty. Chest pain. Bilateral lower extremity paresthesias. COMPARISON: None available. TECHNIQUE: Static and compression grayscale and spectral (including color) Doppler ultrasound of the bilateral lower extremity. FINDINGS: Deep veins: The imaged bilateral common femoral, deep femoral, superficial femoral, popliteal, posterior tibial, and peroneal veins are patent and free of clot. Superficial veins: The imaged bilateral great saphenous veins are patent and free of clot. Extravascular findings: No significant incidental findings. IMPRESSION: No evidence of DVT in either lower extremity. Dictated by Gama Daugherty MD @ 12/08/2024 7:07:01 PM (Electronically Signed)
--- NOTE | 2024-12-08 17:07 | CRLHL7_ITS ---
For Patients: As a result of the Century Cures Act, medical imaging exams and procedure reports are released immediately into your electronic medical record. You may view this report before your referring provider. If you have questions, please contact your health care provider. INDICATION: Dyspnea. Chest pain. Recent surgery. TECHNIQUE: Multiplanar CT pulmonary angiogram was performed after the administration of 95 mL of Isovue 370 intravenous contrast. MIP reconstructions were performed. COMPARISON: None. FINDINGS: Lower neck: The visualized thyroid is unremarkable. Cardiovascular: Contrast opacification of the pulmonary arterial tree is adequate. Heart size is normal. Thoracic aorta and pulmonary artery are normal in caliber. No significant atherosclerotic calcifications of the aortic arch. No significant coronary arterial calcifications. Acute pulmonary emboli within the segmental and subsegmental branches of the right middle lobe. Mediastinum and lymph nodes: Unremarkable. No pathologic mediastinal or hilar lymphadenopathy by size criteria. Lungs: No focal consolidation. Linear bandlike opacification of the lung bases bilaterally, likely subsegmental atelectasis and/or scarring. Airways: Trachea remains patent and midline. Pleura: No pleural effusions or pneumothorax Chest wall: Unremarkable. Scattered subcutaneous emphysema in the right chest wall, may be postprocedural. Bones: No acute osseous abnormalities. Upper abdomen: No acute findings in the visualized upper abdomen. No reflux of contrast material into the IVC. IMPRESSION: Acute pulmonary emboli within the segmental and subsegmental branches of the right middle lobe. No CT evidence of right heart strain. Please note that all CT scans at this facility use dose modulation, iterative reconstruction, and/or weight-based dosing when appropriate to reduce radiation dose to as low as reasonably achievable. Dictated by Jon Bowles MD @ 12/08/2024 7:20:10 PM (Electronically Signed)
--- NOTE | 2024-12-08 17:17 | ED.GENADULT ---
HPI - General Adult General Date Seen: 12/08/24 Chief complaint: Post Op Complication Stated complaint: wants to rule out blood clot Time Seen by Provider: 12/08/24 16:27 Source: patient Mode of arrival: ambulatory Limitations: no limitations History of Present Illness HPI narrative: Patient is a 34-year-old female with a recent tummy tuck and breast lymph done 3 days ago at [facility] to now presenting to emergency department for concern of blood clots. Starting last night she started having the tingling sensation in her legs. States she saw her surgeon this morning for follow-up in he was not too concerned. They did give her a 2nd dose of Lovenox. Her 1st dose was given upon discharge on Friday. Since she left her surgeon's office she started developed some chest tightness. Denies having symptoms like this before. She states this could all be anxiety but she wants to make sure there are not any blood clots. She has no history of blood clots and states she keeps on the SCDs constantly and keeps her legs elevated when she sleeps. She does states she was given of 3 day Lovenox prescription by her surgeon today. Denies fevers, chills, lightheadedness, dizziness, shortness of breath, headache, vision changes. Does states she is having some abdominal pain but this is been consistent since her surgery your surgeon says her surgical sites are healing well. No other concerns noted. Related Data Home Medications ?Medication ?Instructions ?Recorded ?Confirmed cephalexin 500 mg capsule 500 mg PO Q8H 12/08/24 12/08/24 enoxaparin 40 mg/0.4 mL mg subcut 12/08/24 subcutaneous syringe ondansetron 4 mg disintegrating mg 12/08/24 tablet tizanidine 4 mg tablet mg 12/08/24 Previous Rx's ?Medication ?Instructions ?Recorded fluoxetine 10 mg capsule (Prozac) 10 mg PO QDAY #30 caps 11/11/24 apixaban 5 mg (74 tabs) tablets in 5 mg PO BID #74 ea 12/08/24 a dose pack (Eliquis DVT-PE Treat 30D Start) Allergies Allergy/AdvReac Type Severity Reaction Status Date / Time No Known Drug Allergies Allergy Verified 12/08/24 16:45 Review of Systems Status of ROS: Reports: 10 or more systems reviewed and unremarkable except as noted in History and below [facility] Medical History PMS (premenstrual syndrome) ?N94.3 - Premenstrual tension syndrome (ICD-10) 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 Moist mucous membranes. Neck: Symmetric, trachea midline, No thyromegaly. CVS: RRR, No murmurs or gallops. Peripheral pulses 2+ and equal in all extremities, no peripheral edema RESP: Unlabored respiratory effort. Clear to auscultation bilaterally. GI: Nontender/Nondistended, No rebound or guarding. MSK:Extremities w/o deformity, Normal Active ROM, no lower extremity tenderness Skin: Warm, Dry. No rashes or lesions. Neuro: Normal Muscle tone, No focal neurological deficits. Psych: Awake, Alert, & Oriented x3. Appropriate mood and affect. Const: Vital Signs, click to edit/add: Vital Signs - 24 hr 12/08/24 16:34 12/08/24 19:44 Temperature 99.0 F Pulse Rate [Right Pulse Oximeter] 65 82 Respiratory Rate 18 18 Blood Pressure [Ri ght Upper Arm] 129/78 117/78 Pulse Oximetry 97 95 Oxygen Delivery Me thod Room Air Room Air Course Vital Signs Vital signs: Initial Vital Signs Temperature 99.0 F 12/08/24 16:34 Temperature Source Temporal Artery Scan 12/08/24 16:34 Pulse Rate 65 12/08/24 16:34 Pulse Rhythm Regular 12/08/24 16:34 Pulse Strength 3+ Normal 12/08/24 16:34 Respiratory Rate 18 12/08/24 16:34 Blood Pressure 129/78 12/08/24 16:34 Blood Pressure Mean 95 12/08/24 16:34 Blood Pressure Position Sitting 12/08/24 16:34 Pulse Oximetry 97 12/08/24 16:34 Oxygen Delivery Method Room Air 12/08/24 16:34 Vital Signs Temperature 99.0 F 12/08/24 16:34 Pulse Rate 65 12/08/24 16:34 Respiratory Rate 18 12/08/24 16:34 Blood Pressure 129/78 12/08/24 16:34 Pulse Oximetry 97 12/08/24 16:34 Oxygen Delivery Method Room Air 12/08/24 16:34 Temperature 99.0 F 12/08/24 16:34 Pulse Rate 82 12/08/24 19:44 Respiratory Rate 18 12/08/24 19:44 Blood Pressure 117/78 12/08/24 19:44 Pulse Oximetry 95 12/08/24 19:44 Oxygen Delivery Method Room Air 12/08/24 19:44 Medical Decision Making MDM Narrative Medical decision making narrative: Patient is a 34-year-old female presenting for concern blood clots. Considering she is wearing the you a continuous compression devices on her legs I do believe it is relatively unlikely she developed a blood clot but with the recent surgery I will order bilateral lower extremity ultrasound. He is also having chest pain. The differential diagnosis of chest pain is broad and includes common etiologies such as musculoskeletal strain, GERD, pneumonia, etc. More serious etiologies considered include PE, coronary artery disease, pneumothorax, aortic dissection, aortic aneurysm. With her surgery I will order a CTA to rule out PE. This will also a look for pneumonia or pneumothorax. She is otherwise stable so aortic dissection and aortic aneurysm seem unlikely. Ordered EKG and troponin to look for signs of ACS. EKG and troponin showed no concerning abnormalities. Since symptoms have been going on since this morning I do not believe repeat troponin is necessary. Rest of her lab work shows no acute concerning abnormalities. Ultrasounds of her leg showed no signs of DVTs. Her chest CTA shows segmental and subsegmental blood clots but no signs of right heart strain. Her PESI score is 36 and is and the very low risk category. Due that I do feel comfortable discharging her. I will start her on Eliquis. She is agreeable to this plan. Lab Data Labs: Lab Results 12/08/24 Range/Units 17:22 WBC 6.19 (4.50-11.00) K/uL RBC 3.51 L (4.00-5.20) m/uL Hgb 9.7 L (12.0-16.0) gm/dL Hct 30.3 L (33.0-51.0) % MCV 86 (80-100) fL MCH 28 (26-34) pg MCHC 32 (32-36) gm/dL RDW Coeff of Sandra 14.9 (11.5-15.5) % Plt Count 191 (140-440) K/uL Neut % (Auto) 55.0 (42.0-72.0) % Lymph % (Auto) 34.6 (20-44) % Baraga % (Auto) 8.4 (0.0-11.0) % Eos % (Auto) 1.5 (0.0-7.0) % Baso % (Auto) 0.3 (0.0-3.0) % Neut # (Auto) 3.41 (1.7-7.0) K/uL Lymph # (Auto) 2.14 (0.90-2.90) K/uL Baraga # (Auto) 0.50 (0.00-0.90) K/UL Eos # (Auto) 0.09 (0.00-0.50) K/uL Baso # (Auto) 0.02 (0.00-0.30) K/uL Abs Immat Gran (auto) 0.01 (0.00-0.30) K/uL Imm/Tot Granulo (auto) 0.2 % Sodium 135 (135-149) mmol/L Potassium 3.5 L (3.6-5.1) mmol/L Chloride 102 (96-114) mmol/L Carbon Dioxide 27 (20-32) mmol/L Anion Gap 6 L (7-15) mEq/L BUN 16 (5-24) mg/dL Creatinine 0.6 (0.5-1.5) mg/dL Estimated Creat Clear 124.38 Estimated GFR 119 ml/min Glucose 108 (60-115) mg/dL Calcium 8.8 (8.4-10.6) mg/dL Magnesium 1.8 (1.5-2.6) mg/dL Troponin I < 0.01 L (0.01-0.04) ng/mL Imaging Data Venous US: Attestation: I have reviewed the pertinent imaging results. Radiologist's impression: No evidence of DVT in either lower extremity. Dictated by Gama Daugherty MD @ 12/08/2024 7:07:01 PM CTA chest: Attestation: I have reviewed the pertinent imaging results. Radiologist's impression: Acute pulmonary emboli within the segmental and subsegmental branches of the right middle lobe. No CT evidence of right heart strain. Please note that all CT scans at this facility use dose modulation, iterative reconstruction, and/or weight-based dosing when appropriate to reduce radiation dose to as low as reasonably achievable. Dictated by Jon Bowles MD @ 12/08/2024 7:20:10 PM ECG Data Attestation: I personally reviewed and interpreted this ECG as follows: Prior ECG tracings: not available for review Interpretation: Normal sinus rhythm with a rate of 64 beats per minute, normal intervals, normal axis, no ST or T-wave abnormalities. Discharge Plan Discharge Clinical Impression: Pulmonary embolism Qualifiers: Pulmonary embolism type: unspecified Chronicity: acute Acute cor pulmonale presence: without acute cor pulmonale Qualified Code(s): I26.99 - Other pulmonary embolism without acute cor pulmonale Patient Disposition: Home, Self-Care Condition: Stable Instructions: Pulmonary Embolism (ED) Additional Instructions: You have small blood clots in her lungs. At considering your recent surgery it is recommended to 3 to with anticoagulation. You do not need to use the heparin daily injections and instead use the Eliquis provided. Make sure to have close follow-up with your primary care provider. Prescriptions: New Eliquis DVT-PE Treat 30D Start 5 mg (74 tabs) tablets,dose pack 5 mg PO BID Qty: 74 0RF Rx Instructions: take 10 mg twice daily for for 7 days then 5 mg twice daily the her after that No Action fluoxetine [Prozac] 10 mg capsule 10 mg PO QDAY Qty: 30 1RF ondansetron 4 mg tablet,disintegrating Patient Comments: [NO ORIGINAL SIG] enoxaparin 40 mg/0.4 mL syringe subcut cephalexin 500 mg capsule 500 mg PO Q8H tizanidine 4 mg tablet Patient Comments: [NO ORIGINAL SIG] Follow Up/Referrals: Provider,Not a Local [Primary Care Provider] - Stand Alone Forms: [employer] Info Instructions
[2024-12-08 17:37] LABS: Basophils Absolute Auto 0.02 K/uL (0.00-0.30); Basophils Percent Auto 0.3 % (0.0-3.0); Eosinophils Absolute Auto 0.09 K/uL (0.00-0.50); Eosinophils Percent Auto 1.5 % (0.0-7.0); Hematocrit 30.3 % (33.0-51.0); Hemoglobin* 9.7 gm/dL (12.0-16.0); Immature Granulocytes Abs Auto 0.01 K/uL (0.00-0.30); Immature Granulocytes Pct Auto 0.2 %; Lymphocytes Absolute Auto 2.14 K/uL (0.90-2.90); Lymphocytes Percent Auto 34.6 % (20-44); Mean Corpuscular HGB Conc 32 gm/dL (32-36); Mean Corpuscular Hemoglobin 28 pg (26-34); Mean Corpuscular Volume 86 fL (80-100); Monocytes Percent Auto 8.4 % (0.0-11.0); Neutrophils Absolute Auto 3.41 K/uL (1.7-7.0); Platelet Count* 191 K/uL (140-440); RDW Coefficient of Variation % 14.9 % (11.5-15.5); Red Blood Count 3.51 m/uL (4.00-5.20); White Blood Count* 6.19 K/uL (4.50-11.00)
[2024-12-08 17:50] LABS: Chloride* 102 mmol/L (96-114); Potassium* 3.5 mmol/L (3.6-5.1); Sodium* 135 mmol/L (135-149)
[2024-12-08 17:52] LABS: Creatinine* 0.6 mg/dL (0.5-1.5); Est. Creatinine Clearance* 124.38; Estimated Glomerular Filt Rate 119 ml/min; Slide Review Reflex No
[2024-12-08 17:53] LABS: Anion Gap 6 mEq/L (7-15); Blood Urea Nitrogen* 16 mg/dL (5-24); Calcium* 8.8 mg/dL (8.4-10.6); Carbon Dioxide* 27 mmol/L (20-32); Glucose* 108 mg/dL (60-115)
[2024-12-08 17:54] LABS: Magnesium* 1.8 mg/dL (1.5-2.6)
[2024-12-08 18:05] LABS: Troponin I* < 0.01 ng/mL (0.01-0.04)
[2024-12-08 19:44] VITALS: BP 117/78; PULSE 82; RESP 18; O2SAT 95
== END 2024-12-08 20:13 | disposition home or self-care (01) ==
PROVIDERS: Emergency Provider Student in an Organized Health Care Education/Training Program
DX: I26.99 Other pulmonary embolism without acute cor pulmonale (principal)
CPT/HCPCS: 36415; 71275; 80048; 83735; 84484; 85025; 93005; 93970; 99284; 99285; Q9967